=== PATIENT | female | born 1980 | race Caucasian/White ===

== ENCOUNTER → 2020-10-15 | Outpatient (CLI) | payer OTHER ==
[~2020-10-15] MED LIST: PROHANCE 279.3MG/ML 15ML VIAL As Ordered ONE
--- NOTE | 2020-10-15 08:58 | REPVR ---
PROCEDURE INFORMATION: Exam: MR Head Without and With Contrast, Sella Exam date and time: 10/15/2020 7:21 AM Age: 40 years old Clinical indication: Condition or disease; Brain lesion; Patient HX: HX pituitary tumor, managed with meds at times. Priors not available; Additional info: Chavez kingsley of pituitary gland TECHNIQUE: Imaging protocol: MR of the head without and with intravenous contrast. Exam focused on the sella. Contrast material: PROHANCE; Contrast volume: 8 ml; Contrast route: INTRAVENOUS (IV); COMPARISON: No relevant prior studies available. FINDINGS: Brain: Unremarkable. No acute infarct. No significant white matter disease. No edema. Ventricles: Unremarkable. No Ventriculomegaly. Sella: There is a 9 x 6 mm nodule in the right pituitary gland consistent with patient's known pituitary tumor. Bones/joints: Unremarkable. IMPRESSION: There is a 9 x 6 mm nodule in the right pituitary gland consistent with patient's known pituitary tumor. Direct comparison to prior studies is necessary to fully evaluate this exam. Electronically signed by: Leroy Jung On 10/15/2020 08:58:17 AM
== END ==
LOC: M RAD 07:15
PROVIDERS: ATTEND Nurse Practitioner Family
DX: D35.2 Benign neoplasm of pituitary gland (principal)
CPT/HCPCS: 70553; A9576

== ENCOUNTER → 2021-01-28 | Outpatient (CLI) | payer OTHER ==
[2021-01-28 09:51] LABS: THYROID STIMULATING HORMONE 0.661 uIU/ML (0.358-3.740)
[2021-01-28 10:23] LABS: CORTISOL AM 0.9 UG/DL (4.3-22.4); PROLACTIN < 0.3 NG/ML
== END ==
LOC: M LAB 08:39
PROVIDERS: ATTEND Nurse Practitioner Family
DX: D35.2 Benign neoplasm of pituitary gland (principal)

== ENCOUNTER → 2021-04-08 | Outpatient (CLI) | payer OTHER | LOC: M LAB 12:31 | PROVIDERS: ATTEND Internal Medicine Endocrinology, Diabetes & Metabolism | DX: D35.2 Benign neoplasm of pituitary gland (principal) ==

== ENCOUNTER → 2021-06-17 | Outpatient (REF) | LOC: M LAB 08:14 | PROVIDERS: ATTEND Nurse Practitioner Adult Health | DX: Z02.1 Encounter for pre-employment examination (principal) ==

== ENCOUNTER 2021-07-18 15:00 | Emergency (ER) | payer OTHER ==
[~2021-07-18] VITALS: Ht 165.1 cm; Wt 78.2 kg
[2021-07-18] MEDS ORDERED: CABE0.5T PO (15:33)
[2021-07-18] MEDS ORDERED: SERT50TA29 PO (15:33)
[2021-07-18] MEDS ORDERED: CLON0.5T2 (15:33)
[2021-07-18 16:31] LABS: BASO % 0.5 % (0.0-1.0); EOS # 0.1 10^3/uL (0.0-0.5); EOS % 1.9 % (0.0-3.0); HEMATOCRIT 30.6 % (36.0-47.0); HEMOGLOBIN 9.3 g/dl (12.0-15.5); LYMPH # 1.3 10^3/uL (1.5-5.0); LYMPH % 19.6 % (24.0-44.0); MEAN CORPUSCULAR HEMOGLOBIN 25.5 pg (27.0-33.0); MEAN CORPUSCULAR HGB CONC 30.4 g/dl (32.0-36.5); MEAN CORPUSCULAR VOLUME 83.8 fl (80.0-96.0); MONO # 0.4 10^3/uL (0.0-0.8); MONO % 6.4 % (2.0-8.0); NEUTROPHILS # 4.6 10^3/uL (1.5-8.5); NEUTROPHILS % 71.1 % (36.0-66.0); PLATELET COUNT, AUTOMATED 268 10^3/uL (150-450); RED BLOOD COUNT 3.65 10^6/uL (4.00-5.40); WHITE BLOOD COUNT 6.4 10^3/uL (4.0-10.0)
[2021-07-18 16:56] LABS: CK-MB VALUE MASS < 1.0 NG/ML (<3.6); CPK CREATINE PHOSPHOKINASE 50 U/L (26-192); HCG, SERUM QUANTITATIVE < 1.0 MIU/ML; TROPONIN I < 0.02 NG/ML (< 0.10)
--- NOTE | 2021-07-18 16:59 | ECGEPIP ---
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
[2021-07-18] MEDS ORDERED: NS 1,000 ML IV ONE (17:15)
[2021-07-18 18:42] VITALS: BP 125/76
--- NOTE | 2021-07-18 19:10 | REP ---
INDICATION: heavy vaginal bleeding. LMP 07/12/2021 COMPARISON: None. TECHNIQUE: 2D ultrasound images were obtained transvaginally and transabdominally of the pelvis, supplemented by color Doppler. FINDINGS: The anteverted uterus measures 7.5 x 5.8 x 4.9 cm. The endometrium measures 10 mm in thickness., and contains an echogenic nodule measuring 8 x 7 x 6 mm. The right ovary measures 2.7 x 2.2 x 2.1 cm and the left ovary measures 3.0 x 2.7 x 2.3 cm and contains a unilocular cyst measuring 2.7 cm in diameter. There is a small amount of free fluid in the pelvis. Limited images of the bladder are unremarkable. IMPRESSION: 1. Possible endometrial polyp. 2. Unilocular cyst in the left ovary. 3. Free fluid in the pelvis. <Electronically signed by Calvin Yañez > 07/18/21 [id number]
== END 2021-07-18 19:25 | disposition home or self-care (01) ==
LOC: M ED 15:00
DX: N83.202 Unspecified ovarian cyst, left side (principal); N92.0 Excessive and frequent menstruation with regular cycle; N84.0 Polyp of corpus uteri; E23.7 Disorder of pituitary gland, unspecified; Z79.899 Other long term (current) drug therapy; Z88.0 Allergy status to penicillin

== ENCOUNTER → 2021-08-22 | Outpatient (CLI) | payer OTHER ==
[~2021-08-22] MED LIST changes: +CABE0.5T PO; +CLON0.5T2; -PROHANCE 279.3MG/ML 15ML VIAL As Ordered ONE; +SERT50TA29 PO
== END ==
LOC: M LAB 06:45
PROVIDERS: ATTEND Nurse Practitioner Family
DX: D35.2 Benign neoplasm of pituitary gland (principal)

== ENCOUNTER → 2021-09-01 | Outpatient (REF) | LOC: M LABSMTC 10:49 | PROVIDERS: ATTEND Pediatrics | DX: Z11.52 Encounter for screening for COVID-19 (principal) ==

== ENCOUNTER → 2021-09-05 | Outpatient (REF) | LOC: M LABSMTC 11:58 | PROVIDERS: ATTEND Pediatrics | DX: Z11.52 Encounter for screening for COVID-19 (principal) ==

== ENCOUNTER → 2021-10-11 | Outpatient (CLI) | payer OTHER ==
[~2021-10-11] MED LIST changes: +PROHANCE 279.3MG/ML 15ML VIAL As Ordered ONE
== END ==
LOC: M RAD 16:38
PROVIDERS: ATTEND Internal Medicine Endocrinology, Diabetes & Metabolism
DX: D35.2 Benign neoplasm of pituitary gland (principal)

== ENCOUNTER → 2021-11-10 | Outpatient (CLI) | payer OTHER ==
[~2021-11-10] MED LIST changes: -PROHANCE 279.3MG/ML 15ML VIAL As Ordered ONE
--- NOTE | 2021-11-11 08:08 | ECGEPIP ---
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
== END ==
LOC: M EKG 11:41
PROVIDERS: ATTEND Obstetrics & Gynecology
DX: R42 Dizziness and giddiness (principal)